=== PATIENT | male | born 1975 | race Caucasian/White ===

== ENCOUNTER 2022-06-05 12:04 | Emergency (ER) | payer OTHER ==
[~2022-06-05] VITALS: Ht 175.3 cm; Wt 91.0 kg
[2022-06-05] VITALS (7 sets, daily range): BP systolic 111–145; BP diastolic 83–104
[2022-06-05] MEDS ORDERED: METHOCARBAMOL500 MG PO (12:55)
[2022-06-05] MEDS ORDERED: ULTRAM50 M1 PO (12:56)
[2022-06-05] MEDS ORDERED: LISINOPRIL10 MG PO (12:57)
== END 2022-06-05 15:29 | disposition left against medical advice (07) | DRG 605 ==
LOC: ED 12:04
DX: S80.02XA Contusion of left knee, initial encounter (principal); S00.93XA Contusion of unspecified part of head, initial encounter; M25.572 Pain in left ankle and joints of left foot; I10 Essential (primary) hypertension; V40.5XXA Car driver injured in collision with pedestrian or animal in traffic accident, initial encounter; Z87.820 Personal history of traumatic brain injury; Z53.29 Procedure and treatment not carried out because of patient's decision for other reasons